=== PATIENT | male | born 1970 | race African-American/Black ===

== ENCOUNTER 2018-07-21 19:47 | Emergency (ER) | payer SELFPAY ==
[~2018-07-21] VITALS: Ht 180.3 cm; Wt 81.8 kg
[~2018-07-21 19:47] MED LIST: ALBUTEROL0.09 MG/A1 IH; PERCOCET 325 MG1 TA2 PO
[2018-07-21 19:56] VITALS: TEMP 98
[2018-07-21 20:17] LABS: BASO # 0.1 (0.0-0.2); BASO % 0.4 % (0.0-2.0); EOS # 0.2 (0.0-0.7); EOS % 1.3 % (0-4.0); GRAN # 5.1 (1.4-6.5); GRAN % 44.8 % (42.2-75.2); HEMATOCRIT 45.2 % (42.0-52.0); HEMOGLOBIN 15.2 g/dl (13.5-18.0); LYMPH # 5.2 (1.2-3.4); LYMPH % 45.8 % (20.0-51.0); MEAN CELL VOLUME 91 fl (80.0-100.0); MEAN CORPUSCULAR HEMOGLOBIN 31 pg (27.0-31.0); MEAN CORPUSCULAR HGB CONC 34 g/dl (33.0-37.0); MEAN PLATELET VOLUME 8.9 fl (7.4-10.4); MONO # 0.8 (0.1-0.6); MONO % 7.4 % (1.7-9.3); PLATELET COUNT 310 K/mm3 (130-400); RED BLOOD COUNT 4.98 M/mm3 (4.20-5.60); REDCELL DISTRIBUTION WIDTH-CV 13.5 % (11.5-14.5)
[2018-07-21 20:25] LABS: ALANINE AMINOTRANSFERASE 8 U/L (21-72); ALBUMIN 4.5 gm/dL (3.5-5.0); ALKALINE PHOSPHATASE 89 U/L (50-136); ANION GAP 15 mmol/L (7-16); AST,SGOT 28 U/L (15-37); BILIRUBIN,TOTAL 0.6 mg/dL (0.0-1.0); BLOOD UREA NITROGEN 8 mg/dL (9-20); CALCIUM 9.5 mg/dL (8.4-10.2); CARBON DIOXIDE 24 mmol/L (22-30); CHLORIDE 105 mmol/L (98-107); CREATININE, serum 1.02 (0.66-1.25); GLUCOSE 116 mg/dL (74-106); POTASSIUM 3.5 mmol/L (3.4-5.0); SODIUM 144 mmol/L (137-145); TOTAL PROTEIN 7.9 gm/dL (6.4-8.2)
[2018-07-21 20:30] LABS: ALCOHOL(ethanol),MEDICAL < 10 mg/dL
[2018-07-21] MEDS ORDERED: NORCO 325 MG-51 TAB PO (21:32)
[2018-07-21] MEDS ORDERED: CEPHALEXIN500 M1 PO (21:32)
[2018-07-21] MEDS ORDERED: CRUTCHES MC (22:22)
[2018-07-21 22:31] VITALS: BP 134/86; PULSE 80
== END 2018-07-21 22:34 | disposition home or self-care (01) ==
LOC: COL.ER 19:47
PROVIDERS: Emergency Medicine
DX: S82.52XB Displaced fracture of medial malleolus of left tibia, initial encounter for open fracture type I or II (principal); S91.042A Puncture wound with foreign body, left ankle, initial encounter; F17.210 Nicotine dependence, cigarettes, uncomplicated; Z23 Encounter for immunization; W34.00XA Accidental discharge from unspecified firearms or gun, initial encounter; Y92.009 Unspecified place in unspecified non-institutional (private) residence as the place of occurrence of the external cause
CPT/HCPCS: J0690; J2405; J3010; J7030; Q4045